=== PATIENT | male | born 1995 | race Caucasian/White ===

== ENCOUNTER 2021-09-08 21:21 | Emergency (ER) | payer OTHER, BC ==
[2021-09-08 21:39] VITALS: BP 128/79; PULSE 94
[2021-09-08] MEDS ORDERED: Ketorolac 30 MG/ML SDV IM ONE (21:57)
== END 2021-09-08 22:15 | disposition home or self-care (01) ==
LOC: FB.ED 21:21
DX: S62.637A Displaced fracture of distal phalanx of left little finger, initial encounter for closed fracture (principal); S60.152A Contusion of left little finger with damage to nail, initial encounter; Z72.0 Tobacco use; W23.0XXA Caught, crushed, jammed, or pinched between moving objects, initial encounter; Y92.89 Other specified places as the place of occurrence of the external cause; Y99.0 Civilian activity done for income or pay
CPT/HCPCS: 73140-F4; 96372; 99283-25; J1885

== ENCOUNTER 2021-11-22 23:16 | Emergency (ER) | payer OTHER, BC ==
[2021-11-22 23:38] VITALS: BP 116/68; PULSE 94
== END 2021-11-23 01:03 | disposition home or self-care (01) ==
LOC: FB.ED 23:16
DX: S86.912A Strain of unspecified muscle(s) and tendon(s) at lower leg level, left leg, initial encounter (principal); Z72.0 Tobacco use; X50.1XXA Overexertion from prolonged static or awkward postures, initial encounter
CPT/HCPCS: 73562-LT; 99282; 99283

== ENCOUNTER 2022-02-13 22:57 | Emergency (ER) | payer OTHER, BC ==
[2022-02-13] MEDS ORDERED: Diphtheria,Pertussis(Acell),Tetanus Vaccine 0.5 ML Syringe IM ONE (23:25)
[2022-02-13] MEDS ORDERED: Bacitracin Oint 1 GM U/D Packet TOP ONE (23:30)
[2022-02-13 23:47] VITALS: BP 140/78; PULSE 95
== END 2022-02-13 23:55 | disposition home or self-care (01) ==
LOC: FB.ED 22:57
DX: S61.210A Laceration without foreign body of right index finger without damage to nail, initial encounter (principal); X58.XXXA Exposure to other specified factors, initial encounter; Z23 Encounter for immunization
CPT/HCPCS: 90471; 90715; 99283-25

== ENCOUNTER 2024-08-21 23:30 | Emergency (ER) | payer BC, OTHER ==
[2024-08-21] MEDS ORDERED: Lidocaine 2% 5 ML SDV INFILT ONE (23:31)
[2024-08-22] MEDS: LORazepam 1 MG Tab PO ONE (00:29)
[2024-08-22] MEDS: Cephalexin 500 MG Cap PO ONE (00:58)
[2024-08-22 01:17] VITALS: BP 135/72; PULSE 82
== END 2024-08-22 01:03 | disposition home or self-care (01) ==
LOC: FB.ED 23:30
DX: S61.411A Laceration without foreign body of right hand, initial encounter (principal); S61.312A Laceration without foreign body of right middle finger with damage to nail, initial encounter; F17.290 Nicotine dependence, other tobacco product, uncomplicated; Z79.899 Other long term (current) drug therapy; W26.8XXA Contact with other sharp object(s), not elsewhere classified, initial encounter
CPT/HCPCS: 12002; 99282; A9270-GY